=== PATIENT | female | born 1945 | race Caucasian/White ===

== ENCOUNTER 2016-12-26 18:31 | Emergency (ER) | payer MEDICARE ==
[~2016-12-26] VITALS: Ht 160 cm; Wt 53.5 kg
[~2016-12-26 18:31] MED LIST: CPR500T PO
[2016-12-26] MEDS ORDERED: ATOR10TA66 PO (19:36)
[2016-12-26] MEDS ORDERED: DONE10TA41 PO (19:36)
[2016-12-26] MEDS ORDERED: MEMA5TAB16 PO (19:36)
[2016-12-26] MEDS ORDERED: LEVO50TA PO (19:36)
--- NOTE | 2016-12-26 20:04 | Diagnostic Imaging Report ---
PROCEDURE: CT head without contrast. TECHNIQUE: Multiple contiguous axial images were obtained through the brain without the use of intravenous contrast. DATE: December 26, 2016. COMPARISON: None. INDICATION: A 71-year-old female, fall. Abrasion of the left side of forehead. FINDINGS: There are subtle areas of abnormal attenuation in the region of the left forehead, likely relating to site of soft tissue injury. There is no sizable hematoma. There is no identified radiopaque foreign body. The globes appear intact. There is no retro-orbital hematoma. The ventricles are prominent in size and somewhat disproportional to the degree of generalized CSF prominence. Correlation for symptoms of normal pressure hydrocephalus may be of benefit. There is no mass effect or midline shift. There is no acute intracranial hemorrhage. There is no abnormal extra-axial fluid collection. The visualized portions of the paranasal sinuses, mastoid air cells and middle ears are well aerated. IMPRESSION: 1. No identified acute intracranial abnormality. 2. Mild disproportional prominence of the ventricles relative to the additional CSF spaces. Correlation clinically for symptoms of normal pressure hydrocephalus may be of benefit. Dictated by: Dictated on workstation # [id number]
--- NOTE | 2016-12-26 20:42 | ED Head Injury ---
General Chief Complaint: Trauma-Non Activation Stated Complaint: FALL/HEAD INJ Nursing Triage Note: Pt. advised that she fell after missing a step. She denies loss of consciousness at the time of the incident and denies neck pain at this time. Source: patient, spouse Exam Limitations: no limitations History of Present Illness Time seen by provider: 19:35 Initial Comments 71-year-old female patient presents to the emergency Department with reports of missing a step and falling at home. Patient denies loss of consciousness, headache, dizziness, changes in vision, numbness, weakness. Denies shortness of air, chest pain, or seizure. Does complain of abrasions to the left knee and face. Location Injury Occurred: home Occurred: this evening Location: frontal (left adventist) Method of Injury: fell Loss of Consciousness: no loss of consciousness Allergies and Home Medications Allergies Coded Allergies: No Known Drug Allergies (Unverified , 12/26/16) Home Medications Atorvastatin Calcium 10 Mg Tablet, 10 MG PO DAILY, #90 (Reported) Donepezil HCl 10 Mg Tablet, 10 MG PO DAILY, #90 (Reported) Levothyroxine Sodium 50 Mcg Tablet, 50 MCG PO DAILY, #90 (Reported) Memantine HCl 5 Mg Tablet, 5 MG PO BID, #180 (Reported) Constitutional: no symptoms reported Eyes: No Symptoms Reported Ears, Nose, Mouth, Throat: no symptoms reported Respiratory: No cough, No short of breath Cardiovascular: No chest pain, No syncope Gastrointestinal: no symptoms reported Genitourinary: no symptoms reported Musculoskeletal: No back pain, joint pain (left knee.), No joint swelling, No neck pain Skin: see HPI Psychiatric/Neurological: Denies Cognitive Dysfunction, Denies Headache, Denies Numbness, Denies Pet[place] Seizures, Denies Tingling, Denies Tonic Clonic Seizures, Denies Unable to Move Lower Ext, Denies Unable to Move Upper Ext, Denies Weakness All Other Systems Reviewed Negative Unless Noted: Yes (Negative excepted noted.) Past Izckyzu-Jkedcz-Irnqqd Hx Patient Social History Alcohol Use: Denies Use Recreational Drug Use: No Smoking Status: Never a Smoker Recent Foreign Travel: No Contact w/Someone Who Travel: No Recent Infectious Disease Expo: No Recent Hopitalizations: No Immunizations Up To Date Tetanus Booster (TDap): Less than 5yrs Seasonal Allergies Seasonal Allergies: No Surgeries HX Surgeries: No Respiratory Hx Respiratory Disorders: No Cardiovascular Hx Cardiac Disorders: No Neurological Hx Neurological Disorders: No Reproductive System Hx Reproductive Disorders: No Genitourinary Hx Genitourinary Disorders: No Gastrointestinal Hx Gastrointestinal Disorders: No Musculoskeletal Hx Musculoskeletal Disorders: No Endocrine Hx Endocrine Disorders: No HEENT HX ENT Disorders: No Cancer Hx Cancer: No Psychosocial Hx Psychiatric Problems: No Integumentary HX Skin/Integumentary Disorder: No Blood Transfusions Hx Blood Disorders: No Reviewed Nursing Assessment Reviewed/Agree w Nursing PMH: Yes Family Medical History Significant Family History: No Pertinent Family Hx Physical Exam Vital Signs Vital Sign - Last 12Hours 12/26/16 12/26/16 19:29 19:45 Temp 98.2 Pulse 66 Resp 16 B/P (MAP) 163/55 Pulse Ox 98 O2 Delivery Room Air Capillary Refill : Less Than 3 Seconds General Appearance: WD/WN, no apparent distress HEENT: PERRL/EOMI, normal ENT inspection, TMs normal, pharynx normal, other ( abrasions of the left adventist, cheek, and lateral left nose. ) Neck: non-tender, full range of motion, supple, normal inspection Cardiovascular: normal peripheral pulses, regular rate, rhythm, no edema, no murmur Respiratory: lungs clear, normal breath sounds, no respiratory distress Gastrointestinal: non tender, soft, No distended Back: normal inspection, no vertebral tenderness Extremities: normal range of motion, no pedal edema, normal capillary refill, pelvis stable, other (left anterior knee tenderness and superficial abrasion. ( -) ecchymosis noted. ) Psychiatric: alert, oriented x 3 Crainal Nerves: normal hearing, normal speech, PERRL Coordination/Gait: normal finger to nose, normal gait, negative Romberg's sign Motor/Sensory: no motor deficit, no sensory deficit, no pronator drift Skin: normal color, warm/dry, other (abrasions of the left adventist, cheek, and lateral left nose. abrasion of the left anterior knee. ) [place]ong Coma Score Best Eye Response: (4) Open Spontaneously Best Verbal Response: (5) Oriented Best Motor Response: (6) Obeys Commands [place] Total: 15 Progress/Results/Core Measures Results/Orders My Orders Orders - TIMBO PRESSLEY Ct Head Wo (12/26/16 19:45) Vital Signs/I&O Vital Sign - Last 12Hours 12/26/16 12/26/16 12/26/16 19:29 19:45 21:01 Temp 98.2 98.1 Pulse 66 68 60 Resp 16 16 14 B/P (MAP) 163/55 116/106 (109) Pulse Ox 98 98 O2 Delivery Room Air Blood Pressure Mean: 109 Diagnostic Imaging Diagonstic Imaging: CT Plain Films/CT/US/NM/MRI: head Comments FINDINGS: There are subtle areas of abnormal attenuation in the region of the left forehead, likely relating to site of soft tissue injury. There is no sizable hematoma. There is no identified radiopaque foreign body. The globes appear intact. There is no retro-orbital hematoma. The ventricles are prominent in size and somewhat disproportional to the degree of generalized CSF prominence. Correlation for symptoms of normal pressure hydrocephalus may be of benefit. There is no mass effect or midline shift. There is no acute intracranial hemorrhage. There is no abnormal extra-axial fluid collection. The visualized portions of the paranasal sinuses, mastoid air cells and middle ears are well aerated. IMPRESSION: 1. No identified acute intracranial abnormality. 2. Mild disproportional prominence of the ventricles relative to the additional CSF spaces. Correlation clinically for symptoms of normal pressure hydrocephalus may be of benefit. Dictated by: Dictated on workstation # [id number] Reviewed: Reviewed by Me (radiology report reviewed by me. ) Departure Communication Progress Notes Diagnostic findings discussed with the patient. Patient refused left knee x- ray. Plan for discharge to home. All wounds were cleansed with chlorhexidine and sterile saline. Covered with Neosporin and gauze. All return precautions were discussed with the patient and as described in the discharge instructions of this report. Patient voices understanding and agrees with the treatment plan. Patient's refusal for left knee x-ray discussed with Dr. Palomo Moctezuma. Impression Impression: Primary Impression: Minor head injury without loss of consciousness Qualified Codes: S09.90XA - Unspecified injury of head, initial encounter Additional Impressions: Abrasion of face Qualified Codes: S00.81XA - Abrasion of other part of head, initial encounter Abrasion of knee, left Qualified Codes: S80.212A - Abrasion, left knee, initial encounter Disposition: HOME, SELF-CARE Condition: Improved Departure-Patient Inst. Decision time for Depature: 20:40 Referrals: BOYD CHASE MD (PCP/Family) Primary Care Physician Patient Instructions: Minor Head Injury (DC), Skin Abrasions (DC) Add. Discharge Instructions: All discharge instructions reviewed with patient and/or family. Voiced understanding. Tylenol [id number] as directed for pain or headache. No ibuprofen or Aleve for 48 hours, then [id number] as directed for pain or headache if needed. Ice pack for 20 minute intervals as needed for pain. Apply triple antibiotic ointment twice daily for 3 days to the abrasions. Follow-up with your family practitioner for recheck and for possible need of outpatient MRI of the brain (to further evaluate the ventricles in the brain) in the next 2-3 days, call for appointment time tomorrow morning. Return to the emergency department immediately for worsened pain, headache, dizziness, changes in vision, changes in behavior, shortness of air, seizure, vomiting, numbness, weakness, or any other concerns. TIMBO PRESSLEY Dec 26, 2016 20:42
[2016-12-26 21:01] VITALS: BP 166/80
== END 2016-12-26 21:00 | disposition home or self-care (01) ==
LOC: EDUNIT# 18:31 → ER 18:32
DX: S00.81XA Abrasion of other part of head, initial encounter (principal); S80.212A Abrasion, left knee, initial encounter; S00.31XA Abrasion of nose, initial encounter; Z79.899 Other long term (current) drug therapy; W10.9XXA Fall (on) (from) unspecified stairs and steps, initial encounter; Y99.8 Other external cause status
CPT/HCPCS: 70450; 99282

== ENCOUNTER → 2017-06-20 | Outpatient (CLI) | payer MEDICARE ==
[~2017-06-20] MED LIST changes: +ATOR10TA66 PO; +DONE10TA41 PO; +LEVO50TA PO; +MEMA5TAB16 PO
--- NOTE | 2017-06-20 16:01 | Diagnostic Imaging Report ---
PA and lateral views of the chest Indication: Cough Findings: The lungs are hyperinflated but clear. The heart size is at the upper limits of normal. There is no effusion or pneumothorax The mediastinum and flaca appear unremarkable. Impression: Hyperinflated clear lungs. Prominent cardiac size. Dictated by: Dictated on workstation # [id number]
== END ==
LOC: RAD 15:26
PROVIDERS: ATTEND Family Medicine
DX: R05 Cough (principal)
CPT/HCPCS: 71020